=== PATIENT | male | born 1950 | race African-American/Black ===

== ENCOUNTER 2022-08-13 15:36 | Inpatient (IN) ==
[2022-08-13] MEDS ORDERED: SODIUM CHLORIDE 0.9% 1,000 ML IV STA (16:24)
[2022-08-13 18:21] LABS: Basophils % 0.2 % (0.0-0.8); Eosinophils % 0.3 % (0.00-10.9); Hematocrit 21.9 VOL% (42.0-52.0); Hemoglobin 7.5 GM/DL (14.0-18.0); Immature Granulocytes % 1.6 %; Immature Granulocytes Absolute 0.17 #; Lymphocytes # 0.9 10*3/uL (1.4-4.0); Lymphocytes % 8.3 % (21.2-54.2); Mean Corpuscular HGB Conc 34.2 GM/DL (32-36); Mean Corpuscular Volume 95.6 FL (87-102); Mean Platelet Volume 9.6 FL (9.6-12.0); Monocytes # 0.6 10*3/uL (0.11-0.8); Monocytes % 6.2 % (1.7-12.7); Neutrophils % 83.4 % (38.7-73.9); Platelet Count 190 T/CUMM (130-400); Red Blood Count 2.29 MC/CUMM (3.8-5.5); Red Cell Distribution Width 15.1 % (9.3-17.3); White Blood Count 10.3 T/CUMM (4-12)
[2022-08-13 18:31] LABS: PT Patient Result 11.4 SECS (10.1-12.1); Partial Thromboplastin Time 22.2 SECS (23.7-32.9)
[2022-08-13 18:38] LABS: Albumin 2.5 G/DL (3.4-5.0); Bilirubin,Total 0.6 MG/DL (0.20-1.00); Calcium 7.7 MG/DL (8.5-10.1); Osmolality,Calculated 281.4 MOS/KG (273-304); Potassium 3.8 MMOL/L (3.5-5.1); Total Protein 4.8 G/DL (6.4-8.2)
[2022-08-13] MEDS ORDERED: SODIUM CHLORIDE 0.9% 1,000 ML IV PRN (18:42)
[2022-08-13] MEDS ORDERED: ACETAMINOPHEN 325 MG TABLET PO PRN (20:04)
[2022-08-13] MEDS ORDERED: ALBUTEROL 2.5 MG/3 ML NEB RESP TX PRN (20:04)
[2022-08-13] MEDS ORDERED: FUROSEMIDE 40 MG/4 ML VIAL ONE (20:14)
[2022-08-13] MEDS ORDERED: FUROSEMIDE 20 MG/2 ML VIAL IV STA (20:15)
[2022-08-13 22:58] LABS: Hematocrit 29.3 VOL% (42.0-52.0); Hemoglobin 10.1 GM/DL (14.0-18.0)
[2022-08-13] MEDS: PANTOPRAZOLE 40 MG VIAL IV SCH (23:26)
[2022-08-14] MEDS ORDERED: MAGNESIUM HYDROXIDE SUSP 30 ML UDCUP PO ONE (00:30)
[2022-08-14] MEDS: NOREPINEPHRINE 8 MG in SODIUM CHLORIDE 0.9% 242 ML IV PRN ×3 (01:22→18:10)
[2022-08-14 02:33] LABS: Hematocrit 29.1 VOL% (42.0-52.0); Hemoglobin 10.2 GM/DL (14.0-18.0)
[2022-08-14 02:46] LABS: INR 1.1; PT Patient Result 11.8 SECS (10.1-12.1)
[2022-08-14 03:40] LABS: Albumin 2.8 G/DL (3.4-5.0); Bilirubin,Total 2.5 MG/DL (0.20-1.00); Calcium 7.5 MG/DL (8.5-10.1); Potassium 3.9 MMOL/L (3.5-5.1); Total Protein 5.2 G/DL (6.4-8.2)
[2022-08-14] MEDS: VASOPRESSIN 100 UNITS in SODIUM CHLORIDE 0.9% 95 ML IV SCH ×5 (04:55→21:40)
[2022-08-14] MEDS ORDERED: SODIUM CHLORIDE 0.9% 1,000 ML IV ONE (05:00)
[2022-08-14] MEDS: ONDANSETRON 4 MG/2 ML VIAL IV PRN (05:10)
[2022-08-14 05:25] LABS: Basophils % 0.2 % (0.0-0.8); Eosinophils # 0.1 10*3/uL (0.0-0.87); Eosinophils % 0.3 % (0.00-10.9); Hematocrit 19.2 VOL% (42.0-52.0); Hemoglobin 6.6 GM/DL (14.0-18.0); Immature Granulocytes % 2.7 %; Immature Granulocytes Absolute 0.52 #; Lymphocytes # 1.8 10*3/uL (1.4-4.0); Lymphocytes % 9.5 % (21.2-54.2); Mean Corpuscular HGB Conc 34.4 GM/DL (32-36); Mean Corpuscular Volume 95.5 FL (87-102); Mean Platelet Volume 9.8 FL (9.6-12.0); Monocytes # 1.2 10*3/uL (0.11-0.8); Monocytes % 6.3 % (1.7-12.7); NRBC # 0.02 10*3/uL; Platelet Count 185 T/CUMM (130-400); Red Blood Count 2.01 MC/CUMM (3.8-5.5); Red Cell Distribution Width 15.3 % (9.3-17.3); White Blood Count 19.3 T/CUMM (4-12)
[2022-08-14 06:05] LABS: Band Neutrophils 1 % (0-10); Eosinophils 1 % (0-10); Lymphocytes 10 % (20-55); Total Cells Counted 100
[2022-08-14 06:06] LABS: Anisocytosis 1+; Burr Cells Few; Platelet Estimate Normal; Polychromasia Slight
[2022-08-14] MEDS ORDERED: CALCIUM GLUCONATE RIDER 1,000 MG/50 ML PREMIX IV ONE (06:15)
[2022-08-14] MEDS ORDERED: KETAMINE 500 MG/10 ML VIAL ONE (07:07)
[2022-08-14] MEDS ORDERED: PHENYLEPHRINE 1 MG/10 ML SYRINGE IV ONE (07:10)
[2022-08-14] MEDS ORDERED: ETOMIDATE 20 MG/10 ML VIAL IV ONE (07:10)
[2022-08-14] MEDS ORDERED: LIDOCAINE 2% 5 ML VIAL ONE (07:10)
[2022-08-14] MEDS ORDERED: SUCCINYLCHOLINE 200 MG/10 ML VIAL ONE (07:10)
[2022-08-14] MEDS: PANTOPRAZOLE 40 MG VIAL IV SCH ×2 (08:37→20:31)
[2022-08-14 09:38] LABS: Hyaline Casts,Urine 3 /LPF (0-3); Mucus,Urine Occasional /LPF (Occasional); RBC,Urine 1 /HPF (0-4)
[2022-08-14 09:39] LABS: Urine Color Yellow (Yellow)
[2022-08-14 09:40] LABS: Bilirubin,Urine Negative (Negative); Blood, Urine Negative (Negative); Glucose,Urine (UA) 100 mg/dL (Negative); Ketones,Urine Trace mg/dL (Negative); Nitrite,Urine Negative (Negative); Protein,Urine Negative (Negative); Urine Appearance Clear (Clear); Urine Specific Gravity 1.025 (1.001-1.035); Urine Urobilinogen 0.2 eU/dL (<2.0)
[2022-08-14 15:58] LABS: Hematocrit 33.4 VOL% (42.0-52.0); Hemoglobin 11.8 GM/DL (14.0-18.0)
[2022-08-14] MEDS ORDERED: POLYETHYLENE GLYCOL POWDER 255 GM BOTTLE PO ONE (18:00)
[2022-08-15] MEDS: VASOPRESSIN 100 UNITS in SODIUM CHLORIDE 0.9% 95 ML IV SCH ×6 (01:50→22:40)
[2022-08-15 03:32] LABS: Basophils # 0.1 10*3/uL (0.0-0.2); Basophils % 0.2 % (0.0-0.8); Eosinophils # 0.1 10*3/uL (0.0-0.87); Eosinophils % 0.5 % (0.00-10.9); Hematocrit 29.2 VOL% (42.0-52.0); Hemoglobin 10.3 GM/DL (14.0-18.0); Immature Granulocytes % 1.1 %; Immature Granulocytes Absolute 0.27 #; Lymphocytes % 8.4 % (21.2-54.2); Mean Corpuscular HGB Conc 35.3 GM/DL (32-36); Mean Corpuscular Volume 88.2 FL (87-102); Mean Platelet Volume 9.6 FL (9.6-12.0); Monocytes # 1.8 10*3/uL (0.11-0.8); Monocytes % 7.2 % (1.7-12.7); NRBC # 0.04 10*3/uL; Neutrophils % 82.6 % (38.7-73.9); Platelet Count 142 T/CUMM (130-400); Red Blood Count 3.31 MC/CUMM (3.8-5.5); Red Cell Distribution Width 15.9 % (9.3-17.3); White Blood Count 24.3 T/CUMM (4-12)
[2022-08-15] MEDS: NOREPINEPHRINE 8 MG in SODIUM CHLORIDE 0.9% 242 ML IV PRN (03:38)
[2022-08-15 03:49] LABS: Eosinophils 1 % (0-10); Hypochromia Slight; Lymphocytes 13 % (20-55); Platelet Estimate Adequate; Total Cells Counted 100
[2022-08-15 03:50] LABS: Polychromasia Slight
[2022-08-15 03:55] LABS: Albumin 2.1 G/DL (3.4-5.0); Osmolality,Calculated 285.1 MOS/KG (273-304); Potassium 3.9 MMOL/L (3.5-5.1); Total Protein 4.2 G/DL (6.4-8.2)
[2022-08-15] MEDS ORDERED: HEPARIN/NACL 0.9% 2 UNITS/ML 6,000 UNIT/3,000 ML BAG IV ONE (07:57)
[2022-08-15] MEDS ORDERED: LEVOFLOXACIN INJ 500 MG/100 ML PREMIX IV ONE (08:00)
[2022-08-15] MEDS ORDERED: CALCIUM GLUCONATE RIDER 1,000 MG/50 ML PREMIX IV ONE (09:02)
[2022-08-15] MEDS ORDERED: fentaNYL 100 MCG/2 ML VIAL ONE (10:18)
[2022-08-15] MEDS ORDERED: MIDAZOLAM 2 MG/2 ML VIAL ONE (10:20)
[2022-08-15] MEDS ORDERED: ePHEDrine 50 MG/ML VIAL ONE (10:20)
[2022-08-15] MEDS: PANTOPRAZOLE 40 MG VIAL IV SCH ×2 (11:50→21:09)
[2022-08-15] MEDS ORDERED: LIDOCAINE 2% 5 ML VIAL ONE (15:10)
[2022-08-15] MEDS ORDERED: PHENYLEPHRINE DRIP 20 MG/250 ML PREMIX IV ONE (15:10)
[2022-08-15] MEDS ORDERED: propofoL 200 MG/20 ML VIAL IV ONE (15:10)
[2022-08-15] MEDS ORDERED: ROCURONIUM 50 MG/5 ML VIAL IV ONE (15:11)
[2022-08-16] MEDS: VASOPRESSIN 100 UNITS in SODIUM CHLORIDE 0.9% 95 ML IV SCH ×6 (02:50→23:56)
[2022-08-16 04:00] LABS: Albumin 1.9 G/DL (3.4-5.0); Bilirubin,Total 0.9 MG/DL (0.20-1.00); Calcium 6.9 MG/DL (8.5-10.1); Potassium 3.6 MMOL/L (3.5-5.1); Total Protein 3.8 G/DL (6.4-8.2)
[2022-08-16 04:36] LABS: Basophils % 0.2 % (0.0-0.8); Eosinophils # 0.1 10*3/uL (0.0-0.87); Eosinophils % 1.1 % (0.00-10.9); Hematocrit 24.8 VOL% (42.0-52.0); Hemoglobin 8.2 GM/DL (14.0-18.0); Immature Granulocytes Absolute 0.09 #; Lymphocytes % 11.3 % (21.2-54.2); Mean Corpuscular HGB Conc 33.1 GM/DL (32-36); Mean Corpuscular Volume 92.5 FL (87-102); Mean Platelet Volume 9.1 FL (9.6-12.0); Monocytes # 0.5 10*3/uL (0.11-0.8); Monocytes % 5.2 % (1.7-12.7); NRBC # 0.02 10*3/uL; Neutrophils % 81.2 % (38.7-73.9); Platelet Count 112 T/CUMM (130-400); Red Blood Count 2.68 MC/CUMM (3.8-5.5); Red Cell Distribution Width 15.9 % (9.3-17.3); White Blood Count 8.7 T/CUMM (4-12)
[2022-08-16 04:51] LABS: Hypochromia Slight; Polychromasia Slight
[2022-08-16] MEDS ORDERED: LORazepam 2 MG/1 ML VIAL IV PRN (06:30)
[2022-08-16] MEDS: PANTOPRAZOLE 40 MG VIAL IV SCH ×2 (09:51→20:02)
[2022-08-17 03:31] LABS: Basophils % 0.3 % (0.0-0.8); Eosinophils # 0.1 10*3/uL (0.0-0.87); Eosinophils % 2.1 % (0.00-10.9); Hematocrit 23.8 VOL% (42.0-52.0); Hemoglobin 8.1 GM/DL (14.0-18.0); Immature Granulocytes % 0.9 %; Immature Granulocytes Absolute 0.06 #; Lymphocytes # 0.8 10*3/uL (1.4-4.0); Mean Corpuscular Volume 92.6 FL (87-102); Mean Platelet Volume 9.5 FL (9.6-12.0); Monocytes # 0.4 10*3/uL (0.11-0.8); Monocytes % 5.6 % (1.7-12.7); Neutrophils % 80.1 % (38.7-73.9); Platelet Count 131 T/CUMM (130-400); Red Blood Count 2.57 MC/CUMM (3.8-5.5); Red Cell Distribution Width 15.9 % (9.3-17.3); White Blood Count 6.8 T/CUMM (4-12)
[2022-08-17 03:53] LABS: Bilirubin,Total 0.5 MG/DL (0.20-1.00); Calcium 7.5 MG/DL (8.5-10.1); Phosphorous 3.6 MG/DL (2.5-4.9); Potassium 3.6 MMOL/L (3.5-5.1); Total Protein 4.2 G/DL (6.4-8.2)
[2022-08-17] MEDS: VASOPRESSIN 100 UNITS in SODIUM CHLORIDE 0.9% 95 ML IV SCH ×2 (04:15→09:22)
[2022-08-17] MEDS ORDERED: SODIUM CHLORIDE 0.9% 1,000 ML IV PRN (06:12)
[2022-08-17] MEDS: PANTOPRAZOLE 40 MG VIAL IV SCH ×2 (09:24→20:27)
[2022-08-17] MEDS: TAMSULOSIN 0.4 MG CAPSULE PO SCH (14:49)
[2022-08-17 20:59] LABS: Hemoglobin 9.3 GM/DL (14.0-18.0)
[2022-08-18] MEDS ORDERED: LACTATED RINGERS 1,000 ML IV ONE (01:51)
[2022-08-18 02:15] LABS: Basophils % 0.3 % (0.0-0.8); Eosinophils # 0.1 10*3/uL (0.0-0.87); Eosinophils % 0.5 % (0.00-10.9); Hematocrit 26.5 VOL% (42.0-52.0); Hemoglobin 8.8 GM/DL (14.0-18.0); Immature Granulocytes % 1.8 %; Lymphocytes # 0.9 10*3/uL (1.4-4.0); Lymphocytes % 8.4 % (21.2-54.2); Mean Corpuscular HGB Conc 33.2 GM/DL (32-36); Mean Corpuscular Volume 91.4 FL (87-102); Mean Platelet Volume 9.7 FL (9.6-12.0); Monocytes # 0.7 10*3/uL (0.11-0.8); Monocytes % 6.3 % (1.7-12.7); Neutrophils % 82.7 % (38.7-73.9); Platelet Count 178 T/CUMM (130-400); Red Cell Distribution Width 17.2 % (9.3-17.3); White Blood Count 11.1 T/CUMM (4-12)
[2022-08-18] MEDS ORDERED: SODIUM CHLORIDE 0.9% 1,000 ML IV PRN ×4 (02:41→20:18)
[2022-08-18] MEDS: LACTATED RINGERS 1,000 ML IV SCH ×2 (05:40→11:30)
[2022-08-18 08:55] LABS: Hematocrit 29.3 VOL% (42.0-52.0); Hemoglobin 9.8 GM/DL (14.0-18.0)
[2022-08-18] MEDS: TAMSULOSIN 0.4 MG CAPSULE PO SCH (09:10)
[2022-08-18] MEDS: PANTOPRAZOLE 40 MG VIAL IV SCH ×2 (09:10→21:43)
[2022-08-18 14:42] LABS: Hematocrit 27.1 VOL% (42.0-52.0)
[2022-08-18 19:47] LABS: Hematocrit 23.2 VOL% (42.0-52.0); Hemoglobin 7.8 GM/DL (14.0-18.0)
[2022-08-19] MEDS ORDERED: methylPREDNISolone SOD SUC 40 MG/1 ML VIAL IV ONE (00:25)
[2022-08-19] MEDS ORDERED: CETIRIZINE 10 MG TABLET PO ONE (00:26)
[2022-08-19] MEDS: LACTATED RINGERS 1,000 ML IV SCH ×2 (04:15→10:40)
[2022-08-19 06:41] LABS: Basophils % 0.2 % (0.0-0.8); Eosinophils # 0.1 10*3/uL (0.0-0.87); Eosinophils % 0.8 % (0.00-10.9); Hematocrit 31.6 VOL% (42.0-52.0); Immature Granulocytes % 2.2 %; Immature Granulocytes Absolute 0.13 #; Lymphocytes # 0.4 10*3/uL (1.4-4.0); Mean Corpuscular HGB Conc 32.3 GM/DL (32-36); Monocytes # 0.1 10*3/uL (0.11-0.8); Monocytes % 1.8 % (1.7-12.7); Platelet Count 147 T/CUMM (130-400); Red Cell Distribution Width 16.5 % (9.3-17.3)
[2022-08-19 06:43] LABS: Red Blood Count 3.51 MC/CUMM (3.8-5.5)
[2022-08-19 06:44] LABS: Calcium 7.7 MG/DL (8.5-10.1); Hemoglobin 10.2 GM/DL (14.0-18.0); Osmolality,Calculated 283.1 MOS/KG (273-304)
[2022-08-19] MEDS ORDERED: DEXAMETHASONE 4 MG/1 ML VIAL ONE (09:26)
[2022-08-19] MEDS ORDERED: KETAMINE 500 MG/10 ML VIAL ONE (09:26)
[2022-08-19] MEDS ORDERED: SUCCINYLCHOLINE 200 MG/10 ML VIAL ONE (09:26)
[2022-08-19] MEDS ORDERED: ONDANSETRON 4 MG/2 ML VIAL ONE (09:26)
[2022-08-19] MEDS ORDERED: ETOMIDATE 40 MG/20 ML VIAL IV ONE (09:26)
[2022-08-19] MEDS ORDERED: ROCURONIUM 50 MG/5 ML VIAL IV ONE (09:26)
[2022-08-19] MEDS ORDERED: DEXMEDETOMIDINE 200 MCG/2 ML VIAL ONE (09:26)
[2022-08-19] MEDS: TAMSULOSIN 0.4 MG CAPSULE PO SCH (09:33)
[2022-08-19] MEDS: CHOLECALCIFEROL 5,000 UNIT TABLET PO SCH (09:34)
[2022-08-19] MEDS: PANTOPRAZOLE 40 MG VIAL IV SCH ×2 (09:34→20:35)
[2022-08-19] MEDS ORDERED: BUPIVACAINE 0.5% 50 ML VIAL ONE (10:29)
[2022-08-19] MEDS ORDERED: ERTAPENEM 1,000 MG in SODIUM CHLORIDE 0.9% 100 ML IV ONE (11:30)
[2022-08-19] MEDS ORDERED: THIAMINE IV SCH (11:42)
[2022-08-19] MEDS ORDERED: FOLIC ACID IV SCH (11:42)
[2022-08-19] MEDS ORDERED: MULTIVITAMIN IV SCH (11:42)
[2022-08-19] MEDS ORDERED: [UNRECOGNIZED DRUG - OTHER] IV SCH (11:42)
[2022-08-19] MEDS ORDERED: NEOSTIGMINE 10 MG/10 ML VIAL ONE (12:12)
[2022-08-19] MEDS ORDERED: GLYCOPYRROLATE 0.4 MG/2 ML VIAL ONE (12:12)
[2022-08-19] MEDS ORDERED: LACTATED RINGERS 2,000 ML IV ONE (12:20)
[2022-08-19 12:28] LABS: Bacteria,Urine Occasional /HPF (Few); RBC,Urine 1 /HPF (0-4)
[2022-08-19 12:29] LABS: Glucose,Urine (UA) Negative (Negative); Ketones,Urine Negative (Negative); Protein,Urine Negative (Negative); Urine Appearance Clear (Clear); Urine Color Yellow (Yellow); Urine pH 7.5 (4.5-8.0)
[2022-08-19 12:30] LABS: Bilirubin,Urine Negative (Negative); Blood, Urine Trace mg/dL (Negative); Nitrite,Urine Negative (Negative)
[2022-08-20 05:22] LABS: Basophils % 0.2 % (0.0-0.8); Eosinophils % 0.1 % (0.00-10.9); Hematocrit 26.7 VOL% (42.0-52.0); Hemoglobin 8.8 GM/DL (14.0-18.0); Immature Granulocytes % 1.1 %; Immature Granulocytes Absolute 0.14 #; Mean Corpuscular Volume 90.8 FL (87-102); Mean Platelet Volume 9.9 FL (9.6-12.0); Monocytes % 7.6 % (1.7-12.7); Platelet Count 197 T/CUMM (130-400); Red Blood Count 2.94 MC/CUMM (3.8-5.5); Red Cell Distribution Width 17.4 % (9.3-17.3); White Blood Count 12.8 T/CUMM (4-12)
[2022-08-20 05:47] LABS: Calcium 8.4 MG/DL (8.5-10.1); Osmolality,Calculated 283.1 MOS/KG (273-304)
[2022-08-20] MEDS: TAMSULOSIN 0.4 MG CAPSULE PO SCH (09:31)
[2022-08-20] MEDS: CHOLECALCIFEROL 5,000 UNIT TABLET PO SCH (09:31)
[2022-08-20] MEDS: PANTOPRAZOLE 40 MG VIAL IV SCH ×2 (09:32→20:36)
[2022-08-21 05:31] LABS: Basophils % 0.1 % (0.0-0.8); Immature Granulocytes % 1.2 %; Immature Granulocytes Absolute 0.11 #; Mean Platelet Volume 9.7 FL (9.6-12.0)
[2022-08-21 05:48] LABS: Calcium 7.8 MG/DL (8.5-10.1); Osmolality,Calculated 282.1 MOS/KG (273-304); Potassium 3.5 MMOL/L (3.5-5.1)
[2022-08-21 05:53] LABS: Eosinophils % 0.3 % (0.00-10.9); Hematocrit 21.6 VOL% (42.0-52.0); Hemoglobin 7.1 GM/DL (14.0-18.0); Lymphocytes # 0.6 10*3/uL (1.4-4.0); Lymphocytes % 6.7 % (21.2-54.2); Mean Corpuscular HGB Conc 32.9 GM/DL (32-36); Mean Corpuscular Volume 90.8 FL (87-102); Monocytes # 0.7 10*3/uL (0.11-0.8); Monocytes % 7.4 % (1.7-12.7); Neutrophils % 84.3 % (38.7-73.9); Platelet Count 177 T/CUMM (130-400); Red Blood Count 2.38 MC/CUMM (3.8-5.5); Red Cell Distribution Width 17.3 % (9.3-17.3); White Blood Count 9.2 T/CUMM (4-12)
[2022-08-21 07:27] LABS: Hematocrit 22.1 VOL% (42.0-52.0); Hemoglobin 7.2 GM/DL (14.0-18.0)
[2022-08-21] MEDS: TAMSULOSIN 0.4 MG CAPSULE PO SCH (09:01)
[2022-08-21] MEDS: CHOLECALCIFEROL 5,000 UNIT TABLET PO SCH (09:01)
[2022-08-21] MEDS: PANTOPRAZOLE 40 MG VIAL IV SCH ×2 (09:02→20:44)
[2022-08-21] MEDS ORDERED: SODIUM CHLORIDE 0.9% 1,000 ML IV PRN (09:24)
[2022-08-21] MEDS: ONDANSETRON 4 MG/2 ML VIAL IV PRN ×2 (14:18→20:42)
[2022-08-21] MEDS: HYDROmorphone 1 MG/1 ML SYRINGE IV PRN (20:46)
[2022-08-21] MEDS ORDERED: PROMETHAZINE 25 MG/1 ML VIAL IM ONE (22:49)
[2022-08-22] MEDS: ONDANSETRON 4 MG/2 ML VIAL IV PRN ×2 (02:44→08:31)
[2022-08-22 05:30] LABS: Basophils % 0.2 % (0.0-0.8); Eosinophils # 0.1 10*3/uL (0.0-0.87); Eosinophils % 0.6 % (0.00-10.9); Hematocrit 34.2 VOL% (42.0-52.0); Immature Granulocytes % 1.3 %; Immature Granulocytes Absolute 0.17 #; Lymphocytes # 0.6 10*3/uL (1.4-4.0); Lymphocytes % 4.8 % (21.2-54.2); Mean Corpuscular HGB Conc 32.5 GM/DL (32-36); Mean Platelet Volume 9.5 FL (9.6-12.0); Monocytes # 0.8 10*3/uL (0.11-0.8); Monocytes % 5.8 % (1.7-12.7); Neutrophils % 87.3 % (38.7-73.9); Red Cell Distribution Width 15.9 % (9.3-17.3)
[2022-08-22 05:52] LABS: Red Blood Count 3.64 MC/CUMM (3.8-5.5); White Blood Count 13.2 T/CUMM (4-12)
[2022-08-22 05:53] LABS: Hemoglobin 11.1 GM/DL (14.0-18.0); Platelet Count 215 T/CUMM (130-400)
[2022-08-22 06:03] LABS: Eosinophils 2 % (0-10); Lymphocytes 3 % (20-55); Platelet Estimate Adequate; Total Cells Counted 100
[2022-08-22] MEDS: CHOLECALCIFEROL 5,000 UNIT TABLET PO SCH (08:30)
[2022-08-22] MEDS: PANTOPRAZOLE 40 MG VIAL IV SCH ×2 (08:30→20:32)
[2022-08-22] MEDS: TAMSULOSIN 0.4 MG CAPSULE PO SCH (08:30)
[2022-08-22] MEDS: HYDROmorphone 1 MG/1 ML SYRINGE IV PRN ×2 (08:35→20:30)
[2022-08-22] MEDS ORDERED: MULTIVITAMIN INJ 10 ML in AMINO ACIDS/DEXT/LYTES 5-15% 1,000 ML IV SCH (17:00)
[2022-08-22] MEDS ORDERED: DEXTROSE 10% 1,000 ML IV PRN (17:00)
[2022-08-22] MEDS: FAT EMULSION 20% 250 ML IV SCH (17:14)
[2022-08-23 05:11] LABS: Basophils % 0.1 % (0.0-0.8); Eosinophils # 0.2 10*3/uL (0.0-0.87); Eosinophils % 2.5 % (0.00-10.9); Hematocrit 30.7 VOL% (42.0-52.0); Hemoglobin 10.4 GM/DL (14.0-18.0); Immature Granulocytes % 0.5 %; Immature Granulocytes Absolute 0.04 #; Lymphocytes # 0.4 10*3/uL (1.4-4.0); Lymphocytes % 5.8 % (21.2-54.2); Mean Corpuscular HGB Conc 33.9 GM/DL (32-36); Mean Corpuscular Volume 89.8 FL (87-102); Mean Platelet Volume 9.6 FL (9.6-12.0); Monocytes # 0.7 10*3/uL (0.11-0.8); Monocytes % 9.1 % (1.7-12.7); Platelet Count 243 T/CUMM (130-400); Red Blood Count 3.42 MC/CUMM (3.8-5.5); Red Cell Distribution Width 15.5 % (9.3-17.3); White Blood Count 7.3 T/CUMM (4-12)
[2022-08-23 05:31] LABS: Phosphorous 3.1 MG/DL (2.5-4.9)
[2022-08-23 05:32] LABS: Albumin 1.8 G/DL (3.4-5.0); Bilirubin,Total 1.1 MG/DL (0.20-1.00); Calcium 7.5 MG/DL (8.5-10.1); Osmolality,Calculated 270.1 MOS/KG (273-304); Potassium 3.6 MMOL/L (3.5-5.1); Total Protein 4.8 G/DL (6.4-8.2)
[2022-08-23 05:34] LABS: Band Neutrophils 2 % (0-10); Eosinophils 1 % (0-10); Hypochromia Slight; Lymphocytes 3 % (20-55); Microcytosis Slight; Platelet Estimate Adequate; Total Cells Counted 100
[2022-08-23] MEDS: PANTOPRAZOLE 40 MG VIAL IV SCH ×2 (09:02→20:12)
[2022-08-23] MEDS: TAMSULOSIN 0.4 MG CAPSULE PO SCH (09:02)
[2022-08-23] MEDS: INSULIN REGULAR 100 UNIT/ML SUBCUT SCH ×2 (12:52→18:02)
[2022-08-23] MEDS: PIPERACILLIN/TAZOBACTAM 3,375 MG in SODIUM CHLORIDE 0.9% 100 ML IV SCH ×2 (15:06→23:08)
[2022-08-23] MEDS: LACTATED RINGERS 1,000 ML IV SCH (15:06)
[2022-08-23] MEDS: MULTIVITAMIN INJ 10 ML in AMINO ACIDS/DEXT/LYTES 5-15% 2,000 ML IV SCH (17:04)
[2022-08-23] MEDS: FAT EMULSION 20% 250 ML IV SCH (17:04)
[2022-08-23] MEDS: HYDROmorphone 1 MG/1 ML SYRINGE IV PRN ×2 (17:05→20:47)
[2022-08-23] MEDS: METOCLOPRAMIDE 10 MG/2 ML VIAL IV SCH (23:08)
[2022-08-24] MEDS: ONDANSETRON 4 MG/2 ML VIAL IV PRN (00:48)
[2022-08-24] MEDS: INSULIN REGULAR 100 UNIT/ML SUBCUT SCH ×2 (00:50→06:15)
[2022-08-24] MEDS: HYDROmorphone 1 MG/1 ML SYRINGE IV PRN ×3 (05:25→19:31)
[2022-08-24] MEDS: METOCLOPRAMIDE 10 MG/2 ML VIAL IV SCH ×3 (05:26→17:47)
[2022-08-24 05:59] LABS: Basophils % 0.2 % (0.0-0.8); Eosinophils # 0.2 10*3/uL (0.0-0.87); Eosinophils % 2.8 % (0.00-10.9); Hematocrit 31.9 VOL% (42.0-52.0); Hemoglobin 10.3 GM/DL (14.0-18.0); Immature Granulocytes % 0.5 %; Immature Granulocytes Absolute 0.03 #; Lymphocytes # 0.4 10*3/uL (1.4-4.0); Lymphocytes % 6.8 % (21.2-54.2); Mean Corpuscular HGB Conc 32.3 GM/DL (32-36); Mean Corpuscular Volume 92.2 FL (87-102); Mean Platelet Volume 9.9 FL (9.6-12.0); Monocytes # 0.6 10*3/uL (0.11-0.8); Monocytes % 10.4 % (1.7-12.7); Neutrophils % 79.3 % (38.7-73.9); Platelet Count 242 T/CUMM (130-400); Red Blood Count 3.46 MC/CUMM (3.8-5.5); Red Cell Distribution Width 15.6 % (9.3-17.3); White Blood Count 6.2 T/CUMM (4-12)
[2022-08-24] MEDS: PIPERACILLIN/TAZOBACTAM 3,375 MG in SODIUM CHLORIDE 0.9% 100 ML IV SCH ×3 (06:01→22:32)
[2022-08-24 06:19] LABS: Albumin 1.7 G/DL (3.4-5.0); Bilirubin,Total 1.6 MG/DL (0.20-1.00); Calcium 7.4 MG/DL (8.5-10.1); Osmolality,Calculated 274.8 MOS/KG (273-304); Potassium 3.6 MMOL/L (3.5-5.1)
[2022-08-24 06:22] LABS: Band Neutrophils 2 % (0-10); Eosinophils 2 % (0-10); Hypochromia Slight; Lymphocytes 7 % (20-55); Microcytosis Slight; Platelet Estimate Adequate; Total Cells Counted 100
[2022-08-24] MEDS: PANTOPRAZOLE 40 MG VIAL IV SCH ×2 (08:53→20:29)
[2022-08-24] MEDS: TAMSULOSIN 0.4 MG CAPSULE PO SCH (09:52)
[2022-08-24] MEDS: LACTATED RINGERS 1,000 ML IV SCH (16:08)
[2022-08-24] MEDS: FAT EMULSION 20% 250 ML IV SCH (17:20)
[2022-08-24] MEDS: MULTIVITAMIN INJ 10 ML in AMINO ACIDS/DEXT/LYTES 5-15% 2,000 ML IV SCH (17:20)
[2022-08-25] MEDS: METOCLOPRAMIDE 10 MG/2 ML VIAL IV SCH ×5 (00:25→23:36)
[2022-08-25 05:13] LABS: Basophils % 0.2 % (0.0-0.8); Eosinophils # 0.2 10*3/uL (0.0-0.87); Eosinophils % 2.3 % (0.00-10.9); Hematocrit 30.5 VOL% (42.0-52.0); Immature Granulocytes % 1.1 %; Lymphocytes # 0.5 10*3/uL (1.4-4.0); Lymphocytes % 5.6 % (21.2-54.2); Mean Corpuscular HGB Conc 32.8 GM/DL (32-36); Mean Corpuscular Volume 92.4 FL (87-102); Mean Platelet Volume 9.5 FL (9.6-12.0); Monocytes # 0.7 10*3/uL (0.11-0.8); Monocytes % 7.6 % (1.7-12.7); Neutrophils % 83.2 % (38.7-73.9); Platelet Count 275 T/CUMM (130-400); Red Cell Distribution Width 15.1 % (9.3-17.3); White Blood Count 9.2 T/CUMM (4-12)
[2022-08-25 05:34] LABS: Albumin 1.8 G/DL (3.4-5.0); Calcium 7.6 MG/DL (8.5-10.1); Osmolality,Calculated 275.8 MOS/KG (273-304); Potassium 3.6 MMOL/L (3.5-5.1); Total Protein 5.2 G/DL (6.4-8.2)
[2022-08-25] MEDS: PIPERACILLIN/TAZOBACTAM 3,375 MG in SODIUM CHLORIDE 0.9% 100 ML IV SCH ×3 (06:05→23:36)
[2022-08-25] MEDS: PANTOPRAZOLE 40 MG VIAL IV SCH ×2 (09:24→21:41)
[2022-08-25] MEDS: TAMSULOSIN 0.4 MG CAPSULE PO SCH (10:29)
[2022-08-25] MEDS: LACTATED RINGERS 1,000 ML IV SCH (15:59)
[2022-08-25] MEDS: FAT EMULSION 20% 250 ML IV SCH (17:48)
[2022-08-25] MEDS: MULTIVITAMIN INJ 10 ML in AMINO ACIDS/DEXT/LYTES 5-15% 2,000 ML IV SCH (17:48)
[2022-08-25] MEDS: HYDROmorphone 1 MG/1 ML SYRINGE IV PRN (23:36)
[2022-08-26 05:07] LABS: Basophils % 0.2 % (0.0-0.8); Eosinophils # 0.3 10*3/uL (0.0-0.87); Eosinophils % 3.1 % (0.00-10.9); Hematocrit 28.4 VOL% (42.0-52.0); Hemoglobin 9.3 GM/DL (14.0-18.0); Immature Granulocytes Absolute 0.08 #; Lymphocytes # 0.6 10*3/uL (1.4-4.0); Lymphocytes % 6.8 % (21.2-54.2); Mean Corpuscular HGB Conc 32.7 GM/DL (32-36); Mean Corpuscular Volume 92.5 FL (87-102); Mean Platelet Volume 9.5 FL (9.6-12.0); Monocytes # 0.6 10*3/uL (0.11-0.8); Monocytes % 6.9 % (1.7-12.7); Platelet Count 275 T/CUMM (130-400); Red Blood Count 3.07 MC/CUMM (3.8-5.5); White Blood Count 8.4 T/CUMM (4-12)
[2022-08-26 05:37] LABS: Albumin 1.7 G/DL (3.4-5.0); Bilirubin,Total 2.8 MG/DL (0.20-1.00); Osmolality,Calculated 277.7 MOS/KG (273-304); Potassium 3.6 MMOL/L (3.5-5.1); Total Protein 4.9 G/DL (6.4-8.2)
[2022-08-26] MEDS: METOCLOPRAMIDE 10 MG/2 ML VIAL IV SCH ×3 (06:06→17:15)
[2022-08-26] MEDS: PIPERACILLIN/TAZOBACTAM 3,375 MG in SODIUM CHLORIDE 0.9% 100 ML IV SCH ×3 (06:07→23:24)
[2022-08-26] MEDS: TAMSULOSIN 0.4 MG CAPSULE PO SCH (09:24)
[2022-08-26] MEDS: PANTOPRAZOLE 40 MG VIAL IV SCH ×2 (09:24→21:29)
[2022-08-26] MEDS: LACTATED RINGERS 1,000 ML IV SCH (16:30)
[2022-08-26] MEDS: MULTIVITAMIN INJ 10 ML in AMINO ACIDS/DEXT/LYTES 5-15% 2,000 ML IV SCH (16:37)
[2022-08-26] MEDS: FAT EMULSION 20% 250 ML IV SCH (16:48)
[2022-08-26] MEDS: HYDROmorphone 1 MG/1 ML SYRINGE IV PRN ×2 (18:35→21:29)
[2022-08-27] MEDS: METOCLOPRAMIDE 10 MG/2 ML VIAL IV SCH ×4 (00:14→17:09)
[2022-08-27 06:03] LABS: Basophils % 0.4 % (0.0-0.8); Eosinophils # 0.3 10*3/uL (0.0-0.87); Eosinophils % 3.8 % (0.00-10.9); Hematocrit 30.5 VOL% (42.0-52.0); Hemoglobin 9.9 GM/DL (14.0-18.0); Immature Granulocytes % 1.6 %; Immature Granulocytes Absolute 0.12 #; Lymphocytes # 0.6 10*3/uL (1.4-4.0); Lymphocytes % 7.3 % (21.2-54.2); Mean Corpuscular HGB Conc 32.5 GM/DL (32-36); Mean Corpuscular Volume 92.7 FL (87-102); Mean Platelet Volume 9.8 FL (9.6-12.0); Monocytes # 0.7 10*3/uL (0.11-0.8); Monocytes % 9.1 % (1.7-12.7); Neutrophils % 77.8 % (38.7-73.9); Platelet Count 300 T/CUMM (130-400); Red Blood Count 3.29 MC/CUMM (3.8-5.5); Red Cell Distribution Width 14.9 % (9.3-17.3); White Blood Count 7.7 T/CUMM (4-12)
[2022-08-27 06:23] LABS: Calcium 7.8 MG/DL (8.5-10.1); Osmolality,Calculated 276.7 MOS/KG (273-304); Potassium 3.8 MMOL/L (3.5-5.1)
[2022-08-27] MEDS: PIPERACILLIN/TAZOBACTAM 3,375 MG in SODIUM CHLORIDE 0.9% 100 ML IV SCH ×3 (08:42→22:51)
[2022-08-27] MEDS: PANTOPRAZOLE 40 MG VIAL IV SCH ×2 (08:42→21:02)
[2022-08-27] MEDS: TAMSULOSIN 0.4 MG CAPSULE PO SCH (08:42)
[2022-08-27] MEDS: HYDROmorphone 1 MG/1 ML SYRINGE IV PRN ×2 (11:30→18:15)
[2022-08-27] MEDS: ONDANSETRON 4 MG/2 ML VIAL IV PRN (11:38)
[2022-08-27 13:26] LABS: Platelet Count 331 T/CUMM (130-400)
[2022-08-27 13:43] LABS: PT Patient Result 10.9 SECS (10.1-12.1); Partial Thromboplastin Time 31.1 SECS (23.7-32.9)
[2022-08-27] MEDS: MULTIVITAMIN INJ 10 ML in AMINO ACIDS/DEXT/LYTES 5-15% 2,000 ML IV SCH (16:48)
[2022-08-28] MEDS: METOCLOPRAMIDE 10 MG/2 ML VIAL IV SCH ×3 (00:13→11:35)
[2022-08-28] MEDS: HYDROmorphone 1 MG/1 ML SYRINGE IV PRN ×4 (04:25→20:09)
[2022-08-28 05:24] LABS: Basophils % 0.5 % (0.0-0.8); Eosinophils # 0.3 10*3/uL (0.0-0.87); Eosinophils % 3.4 % (0.00-10.9); Hematocrit 30.5 VOL% (42.0-52.0); Immature Granulocytes % 2.1 %; Immature Granulocytes Absolute 0.18 #; Lymphocytes # 0.7 10*3/uL (1.4-4.0); Lymphocytes % 7.6 % (21.2-54.2); Mean Corpuscular HGB Conc 32.8 GM/DL (32-36); Mean Corpuscular Volume 92.1 FL (87-102); Mean Platelet Volume 9.6 FL (9.6-12.0); Monocytes # 0.7 10*3/uL (0.11-0.8); Monocytes % 8.4 % (1.7-12.7); Platelet Count 342 T/CUMM (130-400); Red Blood Count 3.31 MC/CUMM (3.8-5.5); Red Cell Distribution Width 15.1 % (9.3-17.3); White Blood Count 8.6 T/CUMM (4-12)
[2022-08-28 05:47] LABS: Calcium 8.1 MG/DL (8.5-10.1); Osmolality,Calculated 270.1 MOS/KG (273-304); Potassium 4.2 MMOL/L (3.5-5.1)
[2022-08-28] MEDS: PIPERACILLIN/TAZOBACTAM 3,375 MG in SODIUM CHLORIDE 0.9% 100 ML IV SCH ×3 (06:11→23:32)
[2022-08-28] MEDS: TAMSULOSIN 0.4 MG CAPSULE PO SCH (09:14)
[2022-08-28] MEDS: PANTOPRAZOLE 40 MG VIAL IV SCH ×2 (09:16→20:09)
[2022-08-28] MEDS: METOCLOPRAMIDE 10 MG/10 ML UDCUP PO SCH ×2 (16:21→20:09)
[2022-08-29] MEDS: HYDROmorphone 1 MG/1 ML SYRINGE IV PRN ×2 (00:51→05:50)
[2022-08-29] MEDS: PIPERACILLIN/TAZOBACTAM 3,375 MG in SODIUM CHLORIDE 0.9% 100 ML IV SCH (06:12)
[2022-08-29] MEDS: METOCLOPRAMIDE 10 MG/10 ML UDCUP PO SCH ×2 (09:17→11:32)
[2022-08-29] MEDS: TAMSULOSIN 0.4 MG CAPSULE PO SCH (09:17)
[2022-08-29] MEDS: PANTOPRAZOLE 40 MG VIAL IV SCH (09:18)
[2022-08-29 11:48] VITALS: BP 128/81
== END 2022-08-29 12:12 | DRG 329 ==
LOC: EDBD → EDUNIT# → N.ED 15:36 → SUATTDRO 19:58 → N.EDINP 19:58 → N.CC 21:23 → N.5E 08-17 15:45
PROVIDERS: ADMIT Internal Medicine; ATTEND Internal Medicine
PROC: IRAGMES (2022-08-15 09:35)